=== PATIENT | female | born 1960 | race Caucasian/White ===

== ENCOUNTER → 2017-02-17 | Outpatient (CLI) | payer BC | LOC: BMCIMAGING 13:19 | PROVIDERS: ATTEND Obstetrics & Gynecology | DX: Z12.31 Encounter for screening mammogram for malignant neoplasm of breast (principal); Z80.3 Family history of malignant neoplasm of breast | CPT/HCPCS: G0202 ==

== ENCOUNTER 2018-03-21 03:19 | Emergency (ER) | payer BC, OTHER ==
--- NOTE | 2018-03-21 03:45 | EDPHY ---
H & P Stated Complaint: Chest pressure, intermittent since , [place] Time Seen by Provider: 03/21/18 03:23 HPI/ROS: Chief Complaint: Chest pain HPI: 57-year-old woman presenting with intermittent chest pain since the last 4 days. Patient states that she no some mild chest pain 4 days ago. Three days ago she had none. Yesterday she noticed persistent pain throughout the day. Worse when she takes a deep breath. In her central chest left of her sternum. No cough. No fevers or chills. No nausea or vomiting. No leg pain or swelling. She was up skiing. Did not taking falls or other injuries. No history of similar symptoms in the past. No family history of coronary artery disease. At worst is a 7/10. She did take 2 aspirin tonight without any relief. Pain is been persistent for the last 4 hr. ROS: 10 systems were reviewed and were negative except those elements noted in the HPI. PMH: Denies Social History: No smoking, occasional alcohol, no recreational drug use Family History: non-contributory Physical Exam: Gen: Awake, Alert, No Distress HEENT: Nose: no rhinorrhea Eyes: PERRLA, EOMI Mouth: Moist mucosa Neck: Supple, no JVD Chest: nontender, lungs clear to auscultation Heart: S1, S2 normal, no murmur Abd: Soft, non-tender, no guarding Back: no CVA tenderness, no midline tenderness Ext: no edema, non-tender Skin: no rash Neuro: CN II-XII intact, Sensation grossly intact, Strength 5/5 in bilateral upper and lower extremities - Personal History Current Tetanus Diphtheria and Acellular Pertussis (TDAP): No - Medical/Surgical History Hx Asthma: No Hx Chronic Respiratory Disease: No Hx Diabetes: No Hx Cardiac Disease: No Hx Renal Disease: No Hx Cirrhosis: No Hx Alcoholism: No Hx HIV/AIDS: No Hx Splenectomy or Spleen Trauma: No Other PMH: Denies - Social History Smoking Status: Never smoked Constitutional: Initial Vital Signs Temperature (C) 36.8 C 03/21/18 03:20 Heart Rate 89 03/21/18 03:20 Respiratory Rate 18 03/21/18 03:20 Blood Pressure 139/91 H 03/21/18 03:20 O2 Sat (%) 99 03/21/18 03:20 O2 Delivery Mode Room Air Allergies/Adverse Reactions: acetaminophen [From Percocet] Allergy (Unknown, Verified 03/21/18 03:20) oxycodone HCl [From Percocet] Allergy (Unknown, Verified 03/21/18 03:20) Itching cats Allergy (Mild, Uncoded 03/21/18 03:20) Itching Home Medications: Medication Instructions Recorded NO HOME MEDS 0 07/17/10 Medical Decision Making - Diagnostics EKG Interpretation: ECG time 3:29 a.m., sinus rhythm with a rate of 72, normal axis, normal intervals, no acute ST or T-wave changes. Impression: Normal ECG. ED Course/Re-evaluation: 57-year-old with pleuritic chest pain. ECG is normal. She is not tachycardic or hypoxemic. Her D-dimer is 0.53 however with age adjustment this is normal. Chest x-ray is unremarkable. No evidence of acute cardiac or respiratory process. - Data Points Laboratory Results: Laboratory Results 03/21/18 03:35 03/21/18 03:35 03/21/18 03/21/18 03/21/18 03:38 03:35 03:35 WBC 6.79 10^3/uL 10^3/uL (3.80-9.50) RBC 4.84 10^6/uL 10^6/uL (4.18-5.33) Hgb 14.0 g/dL g/dL (12.6-16.3) Hct 42.6 % % (38.0-47.0) MCV 88.0 fL fL (81.5-99.8) MCH 28.9 pg pg (27.9-34.1) MCHC 32.9 g/dL g/dL (32.4-36.7) RDW 13.1 % % (11.5-15.2) Plt Count 286 10^3/uL 10^3/uL (150-400) MPV 8.4 fL L fL (8.7-11.7) Neut % (Auto) 54.2 % % (39.3-74.2) Lymph % (Auto) 34.2 % % (15.0-45.0) [place] % (Auto) 9.7 % % (4.5-13.0) Eos % (Auto) 1.3 % % (0.6-7.6) Baso % (Auto) 0.3 % % (0.3-1.7) Nucleat RBC Rel Count 0.0 % % (0.0-0.2) Absolute Neuts (auto) 3.68 10^3/uL 10^3/uL (1.70-6.50) Absolute Lymphs (auto) 2.32 10^3/uL 10^3/uL (1.00-3.00) Absolute Monos (auto) 0.66 10^3/uL 10^3/uL (0.30-0.80) Absolute Eos (auto) 0.09 10^3/uL 10^3/uL (0.03-0.40) Absolute Basos (auto) 0.02 10^3/uL 10^3/uL (0.02-0.10) Absolute Nucleated RBC 0.00 10^3/uL 10^3/uL (0-0.01) Immature Gran % 0.3 % % (0.0-1.1) Immature Gran # 0.02 10^3/uL 10^3/uL (0.00-0.10) D-Dimer 0.53 ug/mLFEU H ug/mLFEU (0.00-0.50) Sodium Potassium Chloride Carbon Dioxide Anion Gap BUN Creatinine Estimated GFR Glucose Calcium POC Troponin I 0.01 ng/mL ng/mL (0.00-0.08) 03/21/18 03:35 WBC RBC Hgb Hct MCV MCH MCHC RDW Plt Count MPV Neut % (Auto) Lymph % (Auto) [place] % (Auto) Eos % (Auto) Baso % (Auto) Nucleat RBC Rel Count Absolute Neuts (auto) Absolute Lymphs (auto) Absolute Monos (auto) Absolute Eos (auto) Absolute Basos (auto) Absolute Nucleated RBC Immature Gran % Immature Gran # D-Dimer Sodium 140 mEq/L mEq/L (135-145) Potassium 4.3 mEq/L mEq/L (3.5-5.2) Chloride 112 mEq/L H mEq/L (97-110) Carbon Dioxide 21 mEq/l L mEq/l (22-31) Anion Gap 7 mEq/L mEq/L (6-14) BUN 19 mg/dL mg/dL (7-23) Creatinine 0.6 mg/dL mg/dL (0.6-1.0) Estimated GFR > 60 Glucose 105 mg/dL H mg/dL (70-100) Calcium 9.2 mg/dL mg/dL (8.5-10.4) POC Troponin I Medications Given: Discontinued Medications Ketorolac Tromethamine (Toradol) 15 mg IVP EDNOW ONE Stop: 03/21/18 04:18 Last Admin: 03/21/18 04:21 Dose: 15 mg Point of Care Test Results: Chemistry 03/21/18 03:38 POC Troponin I 0.01 ng/mL ng/mL (0.00-0.08) Departure - Departure Disposition: Home, Routine, Self-Care Clinical Impression: Chest wall pain Condition: Good Instructions: Chest Wall Pain (ED) Additional Instructions: Take ibuprofen, 600 mg every 8 hr. You may alternate with acetaminophen, 1000 mg every 8 hr. Follow up with primary care physician in 2-3 days for further evaluation. Return to the emergency department for increasing chest pain, shortness of breath, fevers, chills, cough, or any other concerns. Referrals: Ken Osborn MD [Medical Doctor] - As per Instructions
[2018-03-21 03:50] LABS: PLATELET COUNT 286 10^3/uL (150-400)
[2018-03-21] MEDS ORDERED: KETOROLAC 15 MG/1 ML SDV IVP ONE (04:17)
[2018-03-21 04:51] VITALS: BP 114/69
--- NOTE | 2018-03-21 06:22 | CPEKG ---
Test Reason : OPEN Blood Pressure : / mmHG Vent. Rate : 072 BPM Atrial Rate : 072 BPM P-R Int : 194 ms QRS Dur : 093 ms QT Int : 419 ms P-R-T Axes : 037 034 037 degrees QTc Int : 459 ms Sinus rhythm Confirmed by Edward Vidales ([id number]) on 03/21/2018 6:21:38 AM Referred By: Confirmed By:Edward Vidales
== END 2018-03-21 05:14 | disposition home or self-care (01) ==
DX: R07.89 Other chest pain (principal)
CPT/HCPCS: 84484-ER; 96374; J1885

== ENCOUNTER → 2018-08-15 | Outpatient (CLI) | payer OTHER | LOC: BMCIMAGING 12:15 ==